=== PATIENT | female | born 1950 | race Caucasian/White ===

== ENCOUNTER 2017-01-20 15:40 | Emergency (ER) | payer OTHER, MEDICARE, BC ==
[~2017-01-20] VITALS: Ht 152.4 cm; Wt 92.5 kg
[~2017-01-20 15:40] MED LIST: ALBU8I INH; ALPR1 PO; ASPI81TA82 PO; CHOL1CAP6 PO; FLUTI110I INH; MAGN250T14 PO; METO50TA PO; PROB1CAP12 PO; VITA250T32 PO
[2017-01-20 15:47] VITALS: BP 159/75; PULSE 82; RESP 16; TEMP 97.4; O2SAT 96
[2017-01-20] MEDS ORDERED: ASPI-110 PO (16:00)
[2017-01-20] MEDS ORDERED: ALPR1TAB3 PO (16:00)
[2017-01-20] MEDS ORDERED: FLUTI44I INH (16:00)
[2017-01-20] MEDS ORDERED: TOPR100T PO (16:00)
[2017-01-20] MEDS ORDERED: ALBUAER3 INH (16:00)
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
== END 2017-01-20 17:11 | disposition home or self-care (01) ==
LOC: PHEFT 15:40
DX: S96.911A Strain of unspecified muscle and tendon at ankle and foot level, right foot, initial encounter (principal); V43.52XA Car driver injured in collision with other type car in traffic accident, initial encounter; Y92.410 Unspecified street and highway as the place of occurrence of the external cause
CPT/HCPCS: 73610; 99283

== ENCOUNTER → 2017-07-13 | Outpatient (CLI) | payer MEDICARE, BC ==
[~2017-07-13] VITALS: Ht 152.4 cm; Wt 94.3 kg
[~2017-07-13] MED LIST changes: -ALBU8I INH; +ALBUAER3 INH; -ALPR1 PO; +ALPR1TAB3 PO; +ASPI1TAB57 PO; -ASPI81TA82 PO; +CHLORHEXIDINE GLUCONATE 2 % 1 PACK (2 CLOTHS) TOPICAL PRN; -CHOL1CAP6 PO; +DEXTROSE 5%-LACTATED RING INJ 1,000 ML IV SCH; +FLUT1INH3 INH; -FLUTI110I INH; +FLUTI44I INH; +LACTATED RINGER'S 1000 ML IV PRN; -MAGN250T14 PO; -METO50TA PO; +METOPROLOL TARTRATE 25 MG TAB PO PRN; +POVIDONE IODINE 5% (ANTISEPSIS KIT) 4 APPLICATIONS EACH NARE PRN; -PROB1CAP12 PO; +PROPOFOL 200 MG/20 ML AMP IV ONE; +SODIUM CHLORID 0.9% 500 ML IV PRN; +TOPR100T PO; -VITA250T32 PO
--- NOTE | 2017-07-13 11:57 | GIPROC ---
[facility] [address] [facility]. [facility], [address] EGD PROCEDURE REPORT EXAM DATE: 07/13/2017 PATIENT NAME: Vinita Rowe MR #: [id number] BIRTHDATE: 1950 ATTENDING: Claudia Morales MD ORDER #: [id number] LINK TRAINER MECHANIC: Chasity Howard and Alex Noel STATUS: outpatient INDICATIONS: The patient is a 67 yr old female here for an EGD due to reflux PROCEDURE PERFORMED: EGD w/ biopsy MEDICATIONS: None and Per Anesthesia. TOPICAL ANESTHETIC: none CONSENT: The patient understands the risks and benefits of the procedure and understands that these risks include, but are not limited to: sedation, allergic reaction, infection, perforation and/or bleeding. Alternative means of evaluation and treatment include, among others: physical exam, x-rays, and/or surgical intervention. The patient elects to proceed with this endoscopic procedure. medical equipment was checked for proper function. Hand hygiene and appropriate measures for infection prevention was taken. After the risks, benefits and alternatives of the procedure were thoroughly explained, Informed consent was verified, confirmed and timeout was successfully executed by the treatment team. The patient was anesthetized with topical anesthesia and the EC-[id number] (Pedi C) endoscope was introduced through the mouth and advanced to the second portion of the duodenum. Retroflexed views revealed a hiatal hernia The gastroscope was then slowly withdrawn and removed. Esophagitis distal esophagus-biopsy gastritis antrum-biopsy duodenitis -second portion-biopsy. ADVERSE EVENTS: There were no complications. IMPRESSIONS: 1. Esophagitis distal esophagus-biopsy gastritis antrum-biopsy duodenitis -second portion-biopsy 2. Retroflexed views revealed a hiatal hernia RECOMMENDATIONS: 1. Await biopsy results. Biopsy results will not be ready for 7-10 days. If you don't hear from us in two weeks, call our office for biopsy results. 2. Anti-reflux regimen 3. Continue PPI 4. Avoid NSAIDS PATIENT CONDITION: stable DISPOSITION: Home REPEAT EXAM: Return 3 years EGD Claudia Morales MD eSigned: Claudia Morales MD 07/13/2017 11:57 AM cc: PATIENT NAME: Vinita Rowe MR#: [id number]
[2017-07-13 11:58] VITALS: TEMP 97.8
--- NOTE | 2017-07-13 11:59 | GIPROC ---
[facility] [address] [facility]. [facility], [address] COLONOSCOPY PROCEDURE REPORT EXAM DATE: 07/13/2017 PATIENT NAME: Vinita Rowe MR #: [id number] BIRTHDATE: 1950 ENDOSCOPIST: Claudia Morales MD ORDER #: [id number] ADVERTISING CLERK: Chasity Howard and Alex Noel STATUS: outpatient INDICATIONS: The patient is a 67 yr old female here for a colonoscopy due to history of polyps PROCEDURE PERFORMED: Colonoscopy with biopsy MEDICATIONS: None and Per Anesthesia. PREP QUALITY: fair PREP TYPE:Other: ESTIMATED BLOOD LOSS: None CONSENT: The patient understands the risks and benefits of the procedure and understands that these risks include, but are not limited to: sedation, allergic reaction, infection, perforation and/or bleeding. Alternative means of evaluation and treatment include, among others: physical exam, x-rays, and/or surgical intervention. The patient elects to proceed with this endoscopic procedure. medical equipment was checked for proper function. Hand hygiene and appropriate measures for infection prevention was taken. After the risks, benefits and alternatives of the procedure were thoroughly explained, Informed consent was verified, confirmed and timeout was successfully executed by the treatment team. A digital exam revealed external hemorrhoids The Pentax EC-[id number] endoscope was introduced through the anus and advanced to the cecum, which was identified by both the appendix and ileocecal valve. The instrument was then slowly withdrawn as the colon was fully examined. COLON FINDINGS: Diverticulosis sigmoid,descending diminutive polyps two in rectum-cold biopsy with complete removal two diminutive polyps in sigmoid-cold biopsy with complete removal some semisoid stool in cecum-a gressive washing done-no gross lesions. Retroflexed views revealed internal hemorrhoids and Retroflexed views revealed small internal hemorrhoids The scope was then completely withdrawn from the patient and the procedure terminated. PROCEDURE WITHDRAWAL TIME:8minutes ADVERSE EVENTS: There were no complications. IMPRESSIONS: 1. Diverticulosis sigmoid,descending diminutive polyps two in rectum-cold biopsy with complete removal two diminutive polyps in sigmoid-cold biopsy with complete removal some semisoid stool in cecum-a gressive washing done-no gross lesions 2. Retroflexed views revealed internal hemorrhoids 3. Retroflexed views revealed small internal hemorrhoids 4. Revealed external hemorrhoids RECOMMENDATIONS: 1. Await biopsy results. Biopsy results will not be ready for 7-10 days. If you don't hear from us in two weeks, call our office for results. 2. Benefiber 2 tsp daily 3. High fiber diet 4. Yearly rectal exams RECALL: Return 3 years Colonoscopy Claudia Morales MD eSigned: Claudia Morales MD 07/13/2017 11:59 AM cc: PATIENT NAME: Vinita Rowe MR#: [id number]
[2017-07-13 12:35] VITALS: BP 142/69; PULSE 75; RESP 18; O2SAT 100
--- NOTE | 2017-07-13 15:39 | EKG ---
Date Performed: 07/13/2017 Time Performed: 08:29:21 PTAGE: 67 years EKG: Sinus rhythm NORMAL ECG PREVIOUS TRACING : 07/25/2014 10.25 Compared to prior tracing no significant change DOCTOR: Demarcus Sanchez Interpretating Date/Time 07/13/2017 15:39:15
== END ==
LOC: HSDC 07:53
PROVIDERS: ATTEND Internal Medicine Gastroenterology
DX: Z12.11 Encounter for screening for malignant neoplasm of colon (principal); Z86.010 Personal history of colon polyps; K63.5 Polyp of colon; K62.1 Rectal polyp; K64.4 Residual hemorrhoidal skin tags; K64.8 Other hemorrhoids; K57.30 Diverticulosis of large intestine without perforation or abscess without bleeding; K59.00 Constipation, unspecified; K21.0 Gastro-esophageal reflux disease with esophagitis; K29.50 Unspecified chronic gastritis without bleeding; K44.9 Diaphragmatic hernia without obstruction or gangrene; R11.0 Nausea; J44.9 Chronic obstructive pulmonary disease, unspecified; I47.1 Supraventricular tachycardia
CPT/HCPCS: 00813; 43239; 45380; 88305; 88312; 93005; J7120